=== PATIENT | female | born 1990 | race Caucasian/White ===

== ENCOUNTER 2022-05-09 08:43 | Emergency (ER) | payer MEDICAID ==
[~2022-05-09] VITALS: Ht 162.6 cm; Wt 69.9 kg
[2022-05-09] MEDS ORDERED: LMX 515 GM TOP (09:23)
[2022-05-09] MEDS ORDERED: ANUSOL-HC25 MG PR (09:23)
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
[2022-05-10] MEDS ORDERED: LEXAPRO10 MG (21:44)
[2022-05-10] MEDS ORDERED: GABAPENTIN600 MG PO (21:44)
== END 2022-05-09 09:33 | disposition home or self-care (01) ==
LOC: ED 08:43
DX: K64.9 Unspecified hemorrhoids (principal); K64.8 Other hemorrhoids
CPT/HCPCS: 99282

== ENCOUNTER 2022-05-10 21:18 | Emergency (ER) | payer MEDICAID ==
[~2022-05-10] VITALS: Ht 162.6 cm; Wt 69.8 kg
[~2022-05-10 21:18] MED LIST: ANUSOL-HC25 MG PR; LMX 515 GM TOP
--- OUTSIDE RECORDS SUMMARY | 2022-05-10 21:25 | XMS ---
PreManage Notification: ELYSIA BROWN Security Special Service Representative Events No recent Security Events currently on file CRITERIA MET - [facility] - [facility] - 2 Visits in 30 Days CARE PROVIDERS -[facility] Dentist: Lineworker [facility] Dental [facility] PHONE: [phone] [facility] Current PHONE: Unknown JOSE HARDIN BA Foamite Mixer/Communications Technologist 11/01/2019-Current PHONE: [phone] MARLENY JULIAN Nurse Practitioner: Family Current PHONE: [phone] CHEMO LYONS Foamite Mixer/Communications Technologist Current PHONE: [phone] Chemo Lyons Case Management 05/01/2022-Current PHONE: [phone] Shahbaz has no Care Guidelines for this patient. Tr VISIT COUNT (12 MO.) 1 [facility] 1 [place] [address] [facility] 2 [facility] Lsysa Garcia 2 AMOR [place] TOTAL 12 NOTE: Visits indicate total known visits. ED/UCC VISIT TRACKING (12 MO.) 05/10/2022 21:21 [facility] [place] TYPE: Emergency COMPLAINT: - COLD AND NOT FEELING WELL 05/09/2022 08:44 [facility] [place] TYPE: Emergency COMPLAINT: - RECTAL PAIN 05/01/2022 10:06 [place] TYPE: Emergency COMPLAINT: - R21 DIAGNOSES: 0. RASH 135 132 1181 0. Rash and other nonspecific skin eruption [...] 2 diabetes mellitus without complications 09/01/2021 22:46 [facility] [place] TYPE: Emergency DIAGNOSES: - Abscess of Bartholin's gland - Bartholins catheter issue - stent issue in vagina - Other specified conditions associated with female genital organs and menstrual cycle 08/30/2021 21:47 [facility] [place] TYPE: Emergency DIAGNOSES: - Abscess of Bartholin's gland - Fever; Cyst drain problem 08/30/2021 19:24 [facility] [place] TYPE: Emergency COMPLAINT: - FEVER POSS STINT INF 08/29/2021 12:04 [facility] [place] TYPE: Emergency DIAGNOSES: - PELVIC PAIN [...] Nicotine dependence, cigarettes, uncomplicated 07/25/2021 12:58 [facility] TYPE: Emergency COMPLAINT: - VAGINAL CYST DIAGNOSES: - Type 2 diabetes mellitus without complications - Bipolar disorder, unspecified - Cyst of Bartholin's gland - regional intermodal truck driver (current) use of oral hypoglycemic drugs - Other specified noninflammatory disorders of vagina - Anxiety disorder, unspecified - Other longterm (current) drug therapy - Nicotine dependence, cigarettes, uncomplicated INPATIENT VISIT TRACKING (12 MO.) No inpatient visits to display in this time frame [email or web address]
[2022-05-10] MEDS ORDERED: GABAPENTIN600 MG PO (21:44)
[2022-05-10] MEDS ORDERED: LEXAPRO10 MG (21:44)
[2022-05-12] MEDS ORDERED: CLONIDINE HCL0.1 MG PO (05:03)
[2022-05-12] MEDS ORDERED: PROMETHAZINE HC25 M1 PO (05:25)
[2022-05-12] MEDS ORDERED: CYCLOBENZAPRINE10 MG PO (05:25)
== END 2022-05-11 03:23 | disposition home or self-care (01) ==
LOC: ED 21:18
DX: B34.9 Viral infection, unspecified (principal); Z20.822 Contact with and (suspected) exposure to COVID-19; I10 Essential (primary) hypertension; F43.10 Post-traumatic stress disorder, unspecified; Z79.899 Other long term (current) drug therapy
CPT/HCPCS: 36415; 71045; 80053; 81001; 83605; 85025; 85610; 85730; 87502; 96374; 96375; 99283-25; C9803; J1885; J2405; J7121; U0003

== ENCOUNTER 2022-05-12 04:47 | Emergency (ER) | payer MEDICAID ==
[~2022-05-12] VITALS: Ht 162.6 cm; Wt 70.3 kg
[~2022-05-12 04:47] MED LIST changes: +GABAPENTIN600 MG PO; +LEXAPRO10 MG
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
[2022-05-12] MEDS ORDERED: CLONIDINE HCL0.1 MG PO (05:03)
[2022-05-12] MEDS ORDERED: CYCLOBENZAPRINE10 MG PO (05:25)
[2022-05-12] MEDS ORDERED: PROMETHAZINE HC25 M1 PO (05:25)
== END 2022-05-12 06:07 | disposition home or self-care (01) ==
LOC: ED 04:47
DX: K52.9 Noninfective gastroenteritis and colitis, unspecified (principal); I10 Essential (primary) hypertension; F43.10 Post-traumatic stress disorder, unspecified; Z79.899 Other long term (current) drug therapy
CPT/HCPCS: 96372; 99283; J1885; J2550; J7512

== ENCOUNTER 2022-06-03 17:24 | Emergency (ER) | payer OTHER ==
[~2022-06-03] VITALS: Ht 162.6 cm; Wt 70.3 kg
[~2022-06-03 17:24] MED LIST changes: +CLONIDINE HCL0.1 MG PO; +CYCLOBENZAPRINE10 MG PO; +PROMETHAZINE HC25 M1 PO
--- OUTSIDE RECORDS SUMMARY | 2022-06-03 17:26 | XMS ---
PreManage Notification: ELYSIA BROWN Security Floor Nurse Events No recent Security Events currently on file CRITERIA MET - [facility] - [facility] -[facility] Dentist: Catalyst Plant Supervisor [facility] Dental [facility] PHONE: [phone] JOSE HARDIN BA Microfilm Duplicating Unit Supervisor/Senior Software Tester 11/01/2019-Current PHONE: [phone] MARLENY JULIAN Nurse Practitioner: Family Current PHONE: [phone] CHEMO ELY Case Management 05/01/2022-Current PHONE: [phone] CHEMO ELY Microfilm Duplicating Unit Supervisor/Senior Software Tester Current PHONE: [phone] FATUMA ELY Counselor: Mental Health Flo SAVAGE PHONE: Unknown Shahbaz has no Care Guidelines for this patient. Tr VISIT COUNT (12 MO.) [facility] 6 [facility] Lyssa Garcia 4 AMOR [place] TOTAL 14 NOTE: Visits indicate total known visits. ED/UCC VISIT TRACKING (12 MO.) 06/03/2022 17:25 [facility] [place] TYPE: Emergency COMPLAINT: - HEADACHE 05/12/2022 04:48 [facility] [place] TYPE: Emergency COMPLAINT: - HEADACHE N/V DIAGNOSES: - Post-traumatic stress disorder, unspecified - Essential (primary) hypertension - Nausea with vomiting, unspecified - Noninfective gastroenteritis and colitis, unspecified - Headache, unspecified - Other terminal computer operator (current) drug therapy 05/10/2022 21:21 [facility] [place] TYPE: Emergency COMPLAINT: - COLD AND NOT FEELING WELL DIAGNOSES: - Essential (primary) hypertension - Viral infection, unspecified - Post-traumatic stress disorder, unspecified - Contact with and (suspected) exposure to COVID-19 - Other assisted (current) drug therapy - Fever, unspecified 05/09/2022 08:[address] [facility] [place] TYPE: Emergency COMPLAINT: - RECTAL PAIN DIAGNOSES: - Other specified diseases of anus and rectum - Unspecified hemorrhoids - Other hemorrhoids 05/01/2022 10:06 [facility] TYPE: Emergency COMPLAINT: - R21 DIAGNOSES: 0. Rash and other nonspecific skin eruption 0. RASH [phone] 1. Tinea cruris 2. Nicotine dependence, unspecified, [...] - Nicotine dependence, cigarettes, uncomplicated 09/01/2021 22:46 [facility] [place] TYPE: Emergency DIAGNOSES: - stent issue in vagina - Other specified conditions associated with female genital organs and menstrual cycle - Abscess of Bartholin's gland - Bartholins catheter issue 08/30/2021 [facility]:[address] [facility] [place] TYPE: Emergency DIAGNOSES: - Fever; Cyst drain problem - Abscess of Bartholin's gland 08/30/2021 19:24 [facility] [place] TYPE: Emergency COMPLAINT: - FEVER POSS STINT INF 08/29/2021 12:04 [facility] LYSSA GARCIA [place] TYPE: Emergency DIAGNOSES: - Other diseases of Bartholin's gland - PELVIC PAIN 07/27/2021 12:22 [facility] [place] TYPE: Emergency COMPLAINT: - AMB CYST LEE DIAGNOSES: - Type 2 diabetes mellitus without complications - Nicotine dependence, cigarettes, uncomplicated - Acute vulvitis - Migraine, unspecified, not intractable, without status migrainosus - Migraine, unspecified, not intractable, without status migrainosus 07/26/2021 00:20 [facility] TYPE: Emergency COMPLAINT: - CYST ON VAGINA AREA DIAGNOSES: - Abscess of vulva - Nicotine dependence, cigarettes, uncomplicated - Type 2 diabetes mellitus without complications - Abscess of vulva 07/25/2021 12:58 [facility] [place] TYPE: Emergency COMPLAINT: - VAGINAL CYST DIAGNOSES: - Other assisted (current) drug therapy - Nicotine dependence, cigarettes, uncomplicated - Type 2 diabetes mellitus without complications - Bipolar disorder, unspecified - Cyst of Bartholin's gland - penitentiary (current) use of oral hypoglycemic drugs - Other specified noninflammatory disorders of vagina - Anxiety disorder, unspecified INPATIENT VISIT TRACKING (12 MO.) No inpatient visits to display in this time frame [email or web address]
[2022-06-03] MEDS ORDERED: IBUPROFEN800 MG PO (17:59)
== END 2022-06-03 18:39 | disposition home or self-care (01) ==
LOC: ED 17:24
DX: G43.909 Migraine, unspecified, not intractable, without status migrainosus (principal); I10 Essential (primary) hypertension; F43.10 Post-traumatic stress disorder, unspecified; Z79.899 Other long term (current) drug therapy
CPT/HCPCS: 99283

== ENCOUNTER 2022-06-11 14:49 | Emergency (ER) | payer OTHER ==
[~2022-06-11] VITALS: Ht 162.6 cm; Wt 70.3 kg
[~2022-06-11 14:49] MED LIST changes: +IBUPROFEN800 MG PO
--- OUTSIDE RECORDS SUMMARY | 2022-06-11 14:52 | XMS ---
PreManage Notification: ELYSIA BROWN Security Yard Loader Operator Events No recent Security Events currently on file CRITERIA MET - [facility] - 2 Visits in 30 Days - 6 ED Visits in 6 Months - PDMP CARE PROVIDERS -, [facility] Dentist: Certified Credit [facility] PHONE: [phone] JOSE HARDIN BA Shingle Cutter/Die Machine Operator 11/01/2019-Current PHONE: [phone] MARLENY JULIAN Nurse Practitioner: Family Current PHONE: [phone] CHEMO ELY Case Management 05/01/2022-Current PHONE: [phone] CHEMO ELY Shingle Cutter/Die Machine Operator Current PHONE: [phone] FATUMA ELY Counselor: Mental Health Flo SAVAGE PHONE: Unknown Shahbaz has no Care Guidelines for this patient. Tr VISIT COUNT (12 MO.) 1 [facility] 1 [facility] 6 [facility] 2 [facility] AM[facility] [place] TOTAL 15 NOTE: Visits indicate total known visits. ED/UCC VISIT TRACKING (12 MO.) 06/11/2022 14:50 [facility] [place] TYPE: Emergency COMPLAINT: - MEDICAL CLEARANCE 06/03/2022 17:25 [facility] [place] TYPE: Emergency COMPLAINT: - HEADACHE DIAGNOSES: - Essential (primary) hypertension - Other long term care phlebotomist (current) drug therapy - Headache, unspecified - Migraine, unspecified, not intractable, without status migrainosus - Post-traumatic stress disorder, unspecified 05/12/2022 04:48 [facility] [place] TYPE: Emergency COMPLAINT: - HEADACHE N/V DIAGNOSES: - Other long term care phlebotomist (current) drug therapy - Post-traumatic stress disorder, unspecified - Essential (primary) hypertension - Nausea with vomiting, unspecified - Noninfective gastroenteritis and colitis, unspecified - Headache, unspecified 05/10/2022 21:21 [facility] [place] TYPE: Emergency COMPLAINT: - COLD AND NOT FEELING WELL DIAGNOSES: - Fever, unspecified - Essential (primary) hypertension - Viral infection, unspecified - Post-traumatic stress disorder, unspecified - Contact with and (suspected) exposure to COVID-19 - Other fpc (current) drug therapy 05/09/2022 08:44 [facility] [place] TYPE: Emergency COMPLAINT: - RECTAL PAIN DIAGNOSES: - Other specified diseases of anus and rectum - Unspecified hemorrhoids - Other hemorrhoids 05/01/2022 10:06 [facility] TYPE: Emergency COMPLAINT: - R21 DIAGNOSES: 0. Rash and other nonspecific skin eruption 0. RASH [phone] 1. Tinea cruris 2. Nicotine dependence, unspecified, [...] - Nicotine dependence, cigarettes, uncomplicated 09/01/2021 22:46 [facility] [place] TYPE: Emergency DIAGNOSES: - stent issue in vagina - Other specified conditions associated with female genital organs and menstrual cycle - Abscess of Bartholin's gland - Bartholins catheter issue 08/30/2021 21:47 [facility] [place] TYPE: Emergency DIAGNOSES: - Fever; Cyst drain problem - Abscess of Bartholin's gland 08/30/2021 19:24 [facility] [place] TYPE: Emergency COMPLAINT: - FEVER POSS STINT INF 08/29/2021 12:04 [facility] [place] TYPE: Emergency DIAGNOSES: - Other [...] COMPLAINT: - VAGINAL CYST DIAGNOSES: - Other specified noninflammatory disorders of vagina - Anxiety disorder, unspecified - Other long term care phlebotomist (current) drug therapy - Nicotine dependence, cigarettes, uncomplicated - Type 2 diabetes mellitus without complications - Bipolar disorder, unspecified - Cyst of Bartholin's gland - [facility] (current) use of oral hypoglycemic drugs INPATIENT VISIT TRACKING (12 MO.) No inpatient visits to display in this time frame [email or web address]
== END 2022-06-12 10:11 | disposition home or self-care (01) ==
LOC: ED 14:49
DX: R45.851 Suicidal ideations (principal); F15.10 Other stimulant abuse, uncomplicated; I10 Essential (primary) hypertension; G43.909 Migraine, unspecified, not intractable, without status migrainosus; Z79.899 Other long term (current) drug therapy
CPT/HCPCS: 36415; 80053; 84443; 84703; 85025; 99284; G0480

== ENCOUNTER 2022-10-11 16:40 | Emergency (ER) | payer OTHER ==
[~2022-10-11] VITALS: Ht 162.6 cm; Wt 71.3 kg
[~2022-10-11 16:40] MED LIST changes: +ACYCLOVIR400 MG PO; +HYDROCORTISON28.4 G8 TOP; +IMITREX50 MG PO; +LEXAPRO20 MG PO; +ONDANSETRON HCL4 MG PO; +SUBOXONE 8 MG-1 EAC1 SL
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
[2022-10-11 19:23] VITALS: BP 00/00
--- NOTE | 2022-10-12 06:30 | EKG ---
[facility] [address] [facility] [place], [place] [address] Signed Sinus tachycardia Otherwise normal ECG No previous ECGs available Confirmed by RAMÍREZ CALDERA MD ([id number]) on 10/12/2022 6:30:08 AM Electronically Signed By: RAMÍREZ CALDERA 10/12/22 0630 PATIENT NAME: ELYSIA BROWN Electrocardiogram DATE OF : 89 PHYSICIAN: RAMÍREZ CALDERA REPORT #: [id number] REPORT IS CONFIDENTIAL AND NOT TO BE RELEASED WITHOUT AUTHORIZATION
== END 2022-10-11 19:23 | disposition left against medical advice (07) ==
LOC: ED 16:40
DX: F41.9 Anxiety disorder, unspecified (principal); Z53.21 Procedure and treatment not carried out due to patient leaving prior to being seen by health care provider
CPT/HCPCS: 93005; 93010

== ENCOUNTER 2022-12-01 07:42 | Emergency (ER) | payer OTHER ==
[~2022-12-01] VITALS: Ht 162.6 cm; Wt 70.6 kg
[~2022-12-01 07:42] MED LIST changes: +CLONIDINE HCL0.1 MG; +IMITREX25 MG PO
--- OUTSIDE RECORDS SUMMARY | 2022-12-01 07:44 | XMS ---
PreManage Notification: ELYSIA BROWN Security Edi Manager Events 1 event(s) in the past 18 months Most recent security events: Elopement at [facility] 10/11/2022 16:40 - Patient eloped before treatment completed. - Patient with suicidal and/or homicidal ideations eloped. - Patient eloped with IV in place. Details: Patient LWBS CRITERIA MET - 6 ED Visits in 6 Months - [facility] CARE PROVIDERS CHEMO ELY Case Management 05/01/2022-Current PHONE: [phone] JOSE HARDIN BA Lamp Cleaner/Terrazzo Worker 11/01/2019-Current PHONE: [phone] -, Rosette Medical Dentist: Motor Vehicle Assembly Supervisor [facility] Dental [facility] PHONE: [phone] MARLENY JULIAN Nurse Practitioner: Current PHONE: [phone] Shahbaz has no Care Guidelines for this patient. EMily VISIT COUNT (12 MO.) [address] [place], [place] [address] 2 [facility] TOTAL 14 NOTE: Visits indicate total known visits. ED/UCC VISIT TRACKING (12 MO.) 12/01/2022 07:43 [facility] [place] Karishma Gaytan [place] TYPE: Emergency COMPLAINT: - HEADACHE 10/25/2022 12:37 [facility] [place] HBlaise Gaytan [place] TYPE: Emergency COMPLAINT: - HEADACHE DIAGNOSES: - Essential (primary) hypertension - Headache, unspecified - Migraine, unspecified, not intractable, without status migrainosus - Other raw material planner (current) drug therapy 10/11/2022 16:40 [facility] [place] HBlaise Gaytan [place] TYPE: Emergency COMPLAINT: - ANXIETY DIAGNOSES: - Anxiety disorder, unspecified - Procedure and treatment not carried out due to patient leaving prior to being seen by health care provider 10/04/2022 09:13 [facility] [place] HBlaise Gaytan [place] TYPE: Emergency COMPLAINT: - MEDICATION REFILL DIAGNOSES: - Encounter for issue of repeat prescription - Essential (primary) hypertension - Other raw material planner (current) drug therapy 09/16/2022 22:[address] [facility] Gaytan [place] TYPE: Emergency COMPLAINT: - LT LEG SKIN PROBLEM DIAGNOSES: - Allergic contact dermatitis due to plants, except food - Essential (primary) hypertension - Other raw material planner (current) drug therapy - Rash and other nonspecific skin eruption 09/10/2022 13:[address] [facility] [address] Pra[facility] Gaytan [place] TYPE: Emergency COMPLAINT: - HEADACHE, NAUSEA DIAGNOSES: - Essential (primary) hypertension - Headache, unspecified - Migraine, unspecified, not intractable, without status migrainosus - Other residential (current) drug therapy 07/06/2022 16:48 [facility] OR [facility] TYPE: Emergency COMPLAINT: - headache DIAGNOSES: - Migraine without aura, not intractable, without status migrainosus - headache 07/06/2022 08:11 [facility] Vu-Jimenez [facility] OR [facility] TYPE: Emergency COMPLAINT: - headache DIAGNOSES: - Other migraine, not intractable, without status migrainosus - headache 06/11/2022 14:50 [facility] [place] COMPLAINT: - MEDICAL CLEARANCE DIAGNOSES: - Essential (primary) hypertension - Migraine, unspecified, not intractable, without status migrainosus - Other residential (current) drug therapy - Other stimulant abuse, uncomplicated - Suicidal ideations 06/03/2022 17:25 [facility] [place] Emergency COMPLAINT: - HEADACHE DIAGNOSES: - Essential (primary) hypertension - Headache, unspecified - Migraine, unspecified, not intractable, without status migrainosus - Other residential (current) drug therapy - Post-traumatic stress disorder, unspecified 05/12/2022 04:48 [facility] [place]: Emergency COMPLAINT: - HEADACHE N/V DIAGNOSES: - Essential (primary) hypertension - Headache, unspecified - Nausea with vomiting, unspecified - Noninfective gastroenteritis and colitis, unspecified - Other residential (current) drug therapy - Post-traumatic stress disorder, unspecified 05/10/2022 21:[address] [facility] [address] Gaytan [place] TYPE: Emergency COMPLAINT: - COLD AND NOT FEELING WELL DIAGNOSES: - Contact with and (suspected) exposure to COVID-19 - Essential (primary) hypertension - Fever, unspecified - Other raw material planner (current) drug therapy - Post-traumatic stress disorder, unspecified - Viral infection, unspecified 05/09/2022 08:[address] [facility] [address] Pra[facility] Gaytan [place] TYPE: Emergency COMPLAINT: - RECTAL PAIN DIAGNOSES: - Other hemorrhoids - Other specified diseases of anus and rectum - Unspecified hemorrhoids 05/01/2022 10:06 [facility] TYPE: Emergency COMPLAINT: - R21 DIAGNOSES: 0. Rash and other nonspecific skin eruption 0. RASH [phone] 1. Tinea cruris 2. Diaper dermatitis 2. Nicotine dependence, unspecified, uncomplicated INPATIENT VISIT TRACKING (12 MO.) No inpatient visits to display in this time frame [email or web address]
[2022-12-01 08:43] LABS: INFLUENZA B NAA NEGATIVE (NEGATIVE); RESPIRATORY SYNCYTIAL VIR NAA NEGATIVE (NEGATIVE)
[2022-12-01 10:20] VITALS: BP 97/67
== END 2022-12-01 10:20 | disposition home or self-care (01) ==
LOC: ED 07:42
PROVIDERS: Emergency Medicine
DX: G43.909 Migraine, unspecified, not intractable, without status migrainosus (principal); J06.9 Acute upper respiratory infection, unspecified; I10 Essential (primary) hypertension; Z79.899 Other long term (current) drug therapy; Z20.822 Contact with and (suspected) exposure to COVID-19
CPT/HCPCS: 87502; 96372; 99283; C9803; J1200; J1885; J2765; J3030; U0002

== ENCOUNTER 2023-01-23 17:32 | Emergency (ER) | payer OTHER ==
[~2023-01-23] VITALS: Ht 162.6 cm; Wt 70.3 kg
--- OUTSIDE RECORDS SUMMARY | 2023-01-23 17:34 | XMS ---
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 10/11/2022 16:40 - Patient eloped before treatment completed. - Patient with suicidal and/or homicidal ideations eloped. - Patient eloped with IV in place. Details: Patient LWBS CRITERIA MET - 6 ED Visits in 6 Months - [facility] CARE PROVIDERS CHEMO ELY Case Management 05/01/2022-Current PHONE: [phone] JOSE HARDIN BA Office Assistant/Nurse Practitioner Adult 11/01/2019-Current PHONE: [phone] -, Rosette Medical Dentist: Manager [facility] Dental [facility] PHONE: [phone] MARLENY JULIAN Nurse Practitioner: Current PHONE: [phone] Shahbaz has no Care Guidelines for this patient. EPedro. VISIT COUNT (12 MO.) [address] [place], [place] [address] [address] 1 [facility] TOTAL 16 NOTE: Visits indicate total known visits. ED/UCC VISIT TRACKING (12 MO.) 01/23/2023 17:[address] Karishma Gaytan [place] TYPE: Emergency COMPLAINT: - HEADACHE 12/16/2022 11:46 [facility] [place] TYPE: Emergency DIAGNOSES: - Migraine, unspecified, not intractable, without status migrainosus - migraine 12/01/2022 07:43 [facility] [place] TYPE: Emergency COMPLAINT: - HEADACHE DIAGNOSES: - Acute upper respiratory infection, unspecified - Contact with and (suspected) exposure to COVID-19 - Essential (primary) hypertension - Headache, unspecified - Migraine, unspecified, not intractable, without status migrainosus - [facility] [place] [facility] drug therapy 10/25/2022 12:37 [facility] [place] TYPE: Emergency COMPLAINT: - HEADACHE DIAGNOSES: - Essential (primary) hypertension - Headache, unspecified - Migraine, unspecified, not intractable, without status migrainosus - Other [place] [facility]current[facility] drug therapy 10/11/2022 16:40 [facility] [place] TYPE: Emergency COMPLAINT: - ANXIETY DIAGNOSES: - Anxiety disorder, unspecified - Procedure and treatment not carried out due to patient leaving prior to being seen by health care provider 10/04/2022 09:13 [facility] [place] TYPE: Emergency COMPLAINT: - MEDICATION REFILL DIAGNOSES: - Encounter for issue of repeat prescription - Essential (primary) hypertension - Other intermodal truck driver (current) drug therapy 09/16/2022 22:35 [facility] [place] TYPE: Emergency COMPLAINT: - LT LEG SKIN PROBLEM DIAGNOSES: - Allergic contact dermatitis due to plants, except food - Essential (primary) hypertension - Other [place] [facility]current[facility] drug therapy - Rash and other nonspecific skin eruption 09/10/2022 13:11 [facility] [place] TYPE: Emergency COMPLAINT: - HEADACHE, NAUSEA DIAGNOSES: - Essential (primary) hypertension - Headache, unspecified - Migraine, unspecified, not intractable, without status migrainosus - Other [place] [facility] drug therapy 07/06/2022 16[facility]: Emergency COMPLAINT: - headache DIAGNOSES: - Migraine without aura, not intractable, without status migrainosus - headache 07/06/2022 08:11 [facility] COMPLAINT: - headache DIAGNOSES: - Other migraine, not intractable, without status migrainosus - headache 06/11/2022 14:50 [facility] [place] TYPE: Emergency COMPLAINT: - MEDICAL CLEARANCE DIAGNOSES: - Essential (primary) hypertension - Migraine, unspecified, not intractable, without status migrainosus - Other [place] [facility]current[facility] drug therapy - Other stimulant abuse, uncomplicated - Suicidal ideations 06/03/2022 17:25 [facility] [place] TYPE: Emergency COMPLAINT: - HEADACHE DIAGNOSES: - Essential (primary) hypertension - Headache, unspecified - Migraine, unspecified, not intractable, without status migrainosus - Other [place] [facility]current[facility] drug therapy - Post-traumatic stress disorder, unspecified 05/12/2022 04:48 [facility] [place] TYPE: Emergency COMPLAINT: - HEADACHE N/V DIAGNOSES: - Essential (primary) hypertension - Headache, unspecified - Nausea with vomiting, unspecified - Noninfective gastroenteritis and colitis, unspecified - 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 Praveen Gaytan [place] TYPE: Emergency COMPLAINT: - COLD AND NOT FEELING WELL DIAGNOSES: - Contact with and (suspected) exposure to COVID-19 - Essential (primary) hypertension - Fever, unspecified - Other [place] [facility] (current[facility] drug therapy - Post-traumatic stress disorder, unspecified - Viral infection, unspecified 05/09/2022 08:44 [facility] [place] TYPE: Emergency COMPLAINT: - RECTAL PAIN DIAGNOSES: - Other hemorrhoids - Other specified diseases of anus and rectum - Unspecified hemorrhoids 05/01/2022 10:06 [facility] TYPE: Emergency COMPLAINT: - R21 DIAGNOSES: 0. Rash and other nonspecific skin eruption 0. RASH [phone] 1. Tinea cruris 2. Diaper dermatitis 2. Nicotine dependence, unspecified, uncomplicated INPATIENT VISIT TRACKING (12 MO.) No inpatient visits to display in this time frame [email or web address]
[2023-01-23 19:20] VITALS: BP 111/73
== END 2023-01-23 19:20 | disposition home or self-care (01) ==
LOC: ED 17:32
DX: G43.909 Migraine, unspecified, not intractable, without status migrainosus (principal); I10 Essential (primary) hypertension; F43.10 Post-traumatic stress disorder, unspecified; Z79.899 Other long term (current) drug therapy
CPT/HCPCS: 96374; 96375; 99283-25; J1200; J1885; J2765; J7030

== ENCOUNTER 2023-01-27 09:20 | Emergency (ER) | payer OTHER ==
[~2023-01-27] VITALS: Ht 162.6 cm; Wt 68.5 kg
--- OUTSIDE RECORDS SUMMARY | 2023-01-27 09:29 | XMS ---
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 10/11/2022 16:40 - Patient eloped before treatment completed. - Patient with suicidal and/or homicidal ideations eloped. - Patient eloped with IV in place. Details: Patient LWBS CRITERIA MET - 6 ED Visits in 6 Months - [facility] - 2 Visits in 30 Days CARE PROVIDERS CHEMO ELY Case Management 05/01/2022-Current PHONE: [phone] JOSE HARDIN BA Monitoring Coordinator/Laundry Laborer 11/01/2019-Current PHONE: [phone] -Rosette Medical Dentist: Store Hand [facility] Dental [facility] PHONE: [phone] MARLENY JULIAN Nurse Practitioner: Current PHONE: [phone] Shahbaz has no Care Guidelines for this patient. EMily VISIT COUNT (12 MO.) [facility] [address] 1 Evy [facility] TOTAL 17 NOTE: Visits indicate total known visits. ED/UCC VISIT TRACKING (12 MO.) 01/27/2023 09:20 [facility] [place] TYPE: Emergency COMPLAINT: - CHEST PAIN 01/23/2023 17:32 [facility] [place] TYPE: Emergency COMPLAINT: - HEADACHE DIAGNOSES: - Essential (primary) hypertension - Headache, unspecified - Migraine, unspecified, not intractable, without status migrainosus - Other intermediate manager (current) drug therapy - Post-traumatic stress disorder, unspecified 12/16/2022 11:46 [facility] [place] TYPE: Emergency DIAGNOSES: - Migraine, unspecified, not intractable, without status migrainosus - migraine 12/01/2022 07:[address] [facility] [address] Praveen Gaytan [place] TYPE: Emergency COMPLAINT: - HEADACHE DIAGNOSES: - Acute upper respiratory infection, unspecified - Contact with and (suspected) exposure to COVID-19 - Essential (primary) hypertension - Headache, unspecified - Migraine, unspecified, not intractable, without status migrainosus - Other [facility] (current) drug therapy 10/25/2022 12:37 [facility] [place] TYPE: Emergency COMPLAINT: - HEADACHE DIAGNOSES: - Essential (primary) hypertension - Headache, unspecified - Migraine, unspecified, not intractable, without status migrainosus - Other intermediate manager (current) drug therapy 10/11/2022 16:40 [facility] [place] TYPE: Emergency COMPLAINT: - ANXIETY DIAGNOSES: - Anxiety disorder, unspecified - Procedure and treatment not carried out due to patient leaving prior to being seen by health care provider 10/04/2022 09:13 [facility] [place] TYPE: Emergency COMPLAINT: - MEDICATION REFILL DIAGNOSES: - Encounter for issue of repeat prescription - Essential (primary) hypertension - Other intermediate manager (current) drug therapy 09/16/2022 22:35 [facility] [place] [facility]ise [facility] TYPE: Emergency COMPLAINT: - LT LEG SKIN PROBLEM DIAGNOSES: - Allergic contact dermatitis due to plants, except food - Essential (primary) hypertension - Other intermediate manager (current) drug therapy - Rash and other nonspecific skin eruption 09/10/2022 13:11 [facility] [place] [facility]ise [facility] [place] TYPE: Emergency COMPLAINT: - HEADACHE, NAUSEA DIAGNOSES: - Essential (primary) hypertension - Headache, unspecified - Migraine, unspecified, not intractable, without status migrainosus - Other [facility] (current) drug therapy 07/06/2022 16:48 [facility] [employer] [facility] OR [facility] TYPE: Emergency COMPLAINT: - headache DIAGNOSES: - Migraine without aura, not intractable, without status migrainosus - headache 07/06/2022 08:11 [facility] TYPE: Emergency COMPLAINT: - headache DIAGNOSES: - Other migraine, not intractable, without status migrainosus - headache 06/11/2022 14:50 [facility] [address] Pra[facility]en Gaytan [place] TYPE: Emergency COMPLAINT: - MEDICAL CLEARANCE DIAGNOSES: - Essential (primary) hypertension - Migraine, unspecified, not intractable, without status migrainosus - Other [facility] (current) drug therapy - Other stimulant abuse, uncomplicated - Suicidal ideations 06/03/2022 17:[address] [facility] [address] Pra[facility]tan [place] TYPE: Emergency COMPLAINT: - HEADACHE DIAGNOSES: - Essential (primary) hypertension - Headache, unspecified - Migraine, unspecified, not intractable, without status migrainosus - Other [facility] (current) drug therapy - Post-traumatic stress disorder, unspecified 05/12/2022 04:[address] [facility] [address] Pra[facility]tan [place] TYPE: Emergency COMPLAINT: - HEADACHE N/V DIAGNOSES: - Essential (primary) hypertension - Headache, unspecified - Nausea with vomiting, unspecified - Noninfective gastroenteritis and colitis, unspecified - Other intermediate manager (current) drug therapy - Post-traumatic stress disorder, unspecified 05/10/2022 21:21 [facility] [place] TYPE: [...] and rectum - Unspecified hemorrhoids 05/01/2022 10:06 [facility] TYPE: Emergency COMPLAINT: - R21 DIAGNOSES: 0. Rash and other nonspecific skin eruption 0. RASH [phone] 1. Tinea cruris 2. Diaper dermatitis 2. Nicotine dependence, unspecified, uncomplicated INPATIENT VISIT TRACKING (12 MO.) No inpatient visits to display in this time frame [id number]
[2023-01-27 09:38] LABS: BASOPHILS 0.6 % (0-2); HEMATOCRIT 46.7 % (35.0-50.0); HEMOGLOBIN 15.4 g/dL (12.0-18.0); LYMPHOCYTES 30.9 % (24-44); MCH 26.2 (27-36); MCHC 32.9 g/dl (30-36); MCV 79.5 fl (81-99); MONOCYTES 12.1 % (0-12); NEUTROPHILS 52.4 % (39-80); PLATELET COUNT 275 K/uL (140-440); RBC 5.87 M/ul (4.3-5.7); RDW 13.6 (10.5-15.0)
[2023-01-27] MEDS ORDERED: ALPRAZOLAM0.5 MG PO (09:42)
[2023-01-27] MEDS ORDERED: SULFAMETHOXAZO1 EACH PO (09:43)
[2023-01-27] MEDS ORDERED: ESCITALOPRAM OX20 MG PO (09:44)
[2023-01-27] MEDS ORDERED: ACYCLOVIR400 MG PO (09:44)
[2023-01-27] MEDS ORDERED: SUMATRIPTAN SU100 MG PO (09:44)
[2023-01-27 09:56] LABS: ALBUMIN 4.3 g/dL (3.4-5.0); ALBUMIN/GLOBULIN RATIO 1.39 (1.1-2.4); ALKALINE PHOSPHATASE 92 U/L (46-116); ALT (SGPT) 16 U/L (14-59); ANION GAP 15.5 (7-21); AST (SGOT) 19 U/L (15-37); BILIRUBIN, TOTAL 0.4 ng/dL (0.2-1.0); BUN/CREATININE RATIO 14.94 (6.0-28.6); CALCIUM 9.2 mg/dL (8.5-10.1); CARBON DIOXIDE 25 mmol/L (21-32); CHLORIDE 102 mmol/L (98-107); CREATININE, SERUM 0.87 mg/dL (0.55-1.02); GLOMERULAR FILTRATION RATE,EST 91 mL/min (>60); MAGNESIUM 1.9 mg/dL (1.8-2.4); POTASSIUM 4.5 mmol/L (3.5-5.1); PROTEIN, TOTAL 7.4 g/dL (6.4-8.2); UREA NITROGEN 13 mg/dL (7-18)
[2023-01-27 11:55] VITALS: BP 110/76
--- NOTE | 2023-01-28 06:24 | EKG ---
[facility] [address] [facility] [place], [place] [address] Signed Normal sinus rhythm Normal ECG No previous ECGs available Confirmed by RAMÍREZ CALDERA MD ([id number]) on 01/28/2023 6:23:39 AM Electronically Signed By: RAMÍREZ CALDERA 01/28/23 0624 PATIENT NAME: ELYSIA BROWN Electrocardiogram DATE OF : 89 PHYSICIAN: RAMÍREZ CALDERA REPORT #: [id number] REPORT IS CONFIDENTIAL AND NOT TO BE RELEASED WITHOUT AUTHORIZATION
== END 2023-01-27 11:55 | disposition home or self-care (01) ==
LOC: ED 09:20
PROVIDERS: Emergency Medicine
DX: R07.89 Other chest pain (principal); K21.9 Gastro-esophageal reflux disease without esophagitis; F11.23 Opioid dependence with withdrawal; I10 Essential (primary) hypertension; Z79.899 Other long term (current) drug therapy
CPT/HCPCS: 36415; 71045; 80053; 83735; 84484; 85025; 93005; 93010; 99285-25; A9270

== ENCOUNTER 2023-02-16 14:58 | Emergency (ER) | payer OTHER ==
[~2023-02-16] VITALS: Ht 162.6 cm; Wt 69.5 kg
[~2023-02-16 14:58] MED LIST changes: +ALPRAZOLAM0.5 MG PO; +ESCITALOPRAM OX20 MG PO; +SULFAMETHOXAZO1 EACH PO; +SUMATRIPTAN SU100 MG PO
--- OUTSIDE RECORDS SUMMARY | 2023-02-16 15:00 | XMS ---
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 - Patient with suicidal and/or homicidal ideations eloped. - Patient eloped with IV in place. Details: Patient LWBS CRITERIA MET - 6 ED Visits in 6 Months - [facility] - 2 Visits in 30 Days CARE PROVIDERS CHEMO ELY Case Management 05/01/2022-Current PHONE: [phone] JOSE HARDIN BA Greeting Card Editor/Calf Skinner 11/01/2019-Current PHONE: [phone] -Rosette Medical Dentist: Spout Positioner [facility] PHONE: [phone] MURRAY MITCHELL M Nurse Practitioner: Psychiatric/Mental Health Current PHONE: Unknown MARLENY JULIAN Nurse Practitioner: Family Current PHONE: [phone] Shahbaz has no Care Guidelines for this patient. Tr VISIT COUNT (12 MO.) [facility] [address] 1 Evy Jensen [facility] TOTAL 18 NOTE: Visits indicate total known visits. ED/UCC VISIT TRACKING (12 MO.) 02/16/2023 14:59 [facility] [place] TYPE: Emergency COMPLAINT: - HEADACHE 01/27/2023 09:20 [facility] [place] TYPE: Emergency COMPLAINT: - CHEST PAIN DIAGNOSES: - Chest pain, unspecified - Essential (primary) hypertension - Gastro-esophageal reflux disease without esophagitis - Opioid dependence with withdrawal - Other chest pain - Other long term care social worker (current) drug therapy 01/23/2023 17:32 [facility] [place] TYPE: Emergency COMPLAINT: - HEADACHE DIAGNOSES: - Essential (primary) hypertension - Headache, unspecified - Migraine, unspecified, not intractable, without status migrainosus - Other long term care social worker (current) drug therapy - Post-traumatic stress disorder, unspecified 12/16/2022 11:46 [facility] [place] TYPE: Emergency DIAGNOSES: - Migraine, unspecified, not intractable, without status migrainosus - migraine 12/01/2022 07:43 [facility] [place] TYPE: Emergency COMPLAINT: - HEADACHE DIAGNOSES: - Acute upper respiratory infection, unspecified - Contact with and (suspected) exposure to COVID-19 - Essential (primary) hypertension - Headache, unspecified - Migraine, unspecified, not intractable, without status migrainosus - Other long term care social worker (current) drug therapy 10/25/2022 12:37 [facility] [place] TYPE: Emergency COMPLAINT: - HEADACHE DIAGNOSES: - Essential (primary) hypertension - Headache, unspecified - Migraine, unspecified, not intractable, without status migrainosus - Other [facility] (current) drug therapy 10/11/2022 16:40 [facility] [facility] [place] TYPE: Emergency COMPLAINT: - ANXIETY DIAGNOSES: - Anxiety disorder, unspecified - Procedure and treatment not carried out due to patient leaving prior to being seen by health care provider 10/04/2022 09:13 [facility] [place] [facility] TYPE: Emergency COMPLAINT: - MEDICATION REFILL DIAGNOSES: - Encounter for issue of repeat prescription - Essential (primary) hypertension - Other [facility] (current) drug therapy 09/16/2022 22:35 [facility] [facility]la[facility] [place] TYPE: Emergency COMPLAINT: - LT LEG SKIN PROBLEM DIAGNOSES: - Allergic contact dermatitis due to plants, except food - Essential (primary) hypertension - Other [facility] (current) drug therapy - Rash and other nonspecific skin eruption 09/10/2022 13:11 [facility] [facility]la[facility] [place] TYPE: Emergency COMPLAINT: - HEADACHE, NAUSEA DIAGNOSES: - Essential (primary) hypertension - Headache, unspecified - Migraine, unspecified, not intractable, without status migrainosus - Other [facility] (current) drug therapy 07/06/2022 16:48 [facility] OR [facility] TYPE: Emergency COMPLAINT: - headache DIAGNOSES: - Migraine without aura, not intractable, without status migrainosus - headache 07/06/2022 08:11 [facility] OR [facility] TYPE: Emergency COMPLAINT: - headache DIAGNOSES: - Other migraine, not intractable, without status migrainosus - headache 06/11/2022 14:50 [facility] [place] TYPE: Emergency COMPLAINT: - MEDICAL CLEARANCE DIAGNOSES: - Essential (primary) hypertension - Migraine, unspecified, not intractable, without status migrainosus - Other long term care social worker (current) drug therapy - Other stimulant abuse, uncomplicated - Suicidal ideations 06/03/2022 17:25 [facility] [place] [facility]laise [place] TYPE: Emergency COMPLAINT: - HEADACHE DIAGNOSES: - Essential (primary) hypertension - Headache, unspecified - Migraine, unspecified, not intractable, without status migrainosus - Other [facility] (current) drug therapy - Post-traumatic stress disorder, unspecified 05/12/2022 04[facility] COMPLAINT: - HEADACHE N/V DIAGNOSES: - Essential (primary) hypertension - Headache, unspecified - Nausea with vomiting, unspecified - Noninfective gastroenteritis and colitis, unspecified - Other [facility] (current) drug therapy - Post-traumatic stress disorder, unspecified 05/10/2022 21:21 [facility] [place] [facility]: [facility] COMPLAINT: - COLD AND NOT FEELING WELL DIAGNOSES: - Contact with and (suspected) exposure to COVID-19 - Essential (primary) hypertension - Fever, unspecified - Other long term care social worker (current) drug therapy - Post-traumatic stress disorder, unspecified - Viral infection, unspecified 05/09/2022 08:44 [facility] [place] TYPE: Emergency COMPLAINT: - RECTAL PAIN DIAGNOSES: - Other hemorrhoids - Other specified diseases of anus and rectum - Unspecified hemorrhoids 05/01/2022 10:06 [facility] TYPE: Emergency COMPLAINT: - R21 DIAGNOSES: 0. Rash and other nonspecific skin eruption 0. RASH [phone] 1. Tinea cruris 2. Diaper dermatitis 2. Nicotine dependence, unspecified, uncomplicated INPATIENT VISIT TRACKING (12 MO.) No inpatient visits to display in this time frame [id number]
[2023-02-16] MEDS ORDERED: VRAYLAR1.5 MG PO (15:04)
[2023-02-16 17:15] VITALS: BP 106/80
== END 2023-02-16 17:10 | disposition home or self-care (01) ==
LOC: ED 14:58
DX: G43.909 Migraine, unspecified, not intractable, without status migrainosus (principal); I10 Essential (primary) hypertension; Z79.899 Other long term (current) drug therapy
CPT/HCPCS: 96372; 99283; J1885; J3030

== ENCOUNTER 2024-03-02 06:17 | Emergency (ER) | payer OTHER ==
[~2024-03-02] VITALS: Ht 162.6 cm; Wt 75.0 kg
[~2024-03-02 06:17] MED LIST changes: +VRAYLAR1.5 MG PO
[2024-03-02] MEDS ORDERED: IMITREX100 MG PO (06:28)
[2024-03-02] MEDS ORDERED: BUPRENORPHIN-N1 EACH SL (06:28)
[2024-03-02] MEDS ORDERED: diphenhydrAMINE HCL 50 MG/ML VIAL IV ONE (06:45)
[2024-03-02] MEDS ORDERED: SUMAtriptan succinate 6 MG/0.5 ML VIAL SUB-Q ONE (06:45)
[2024-03-02] MEDS ORDERED: KETOROLAC TROMETHAMINE 30 MG/ML VIAL IV ONE (06:45)
[2024-03-02] MEDS ORDERED: METOCLOPRAMIDE HCL 10 MG/2 ML SDV IV ONE (07:00)
[2024-03-02] MEDS ORDERED: SODIUM CHLORIDE 0.9% 1,000 ML IV ONE (07:00)
[2024-03-02 07:46] VITALS: BP 119/83
== END 2024-03-02 07:47 | disposition home or self-care (01) ==
LOC: ED 06:17
DX: G43.909 Migraine, unspecified, not intractable, without status migrainosus (principal); I10 Essential (primary) hypertension; Z79.899 Other long term (current) drug therapy
CPT/HCPCS: 96374; 96375; 99283-25; J1200; J1885; J2765; J3030; J7030